=== PATIENT | female | born 1990 | race Caucasian/White ===

== ENCOUNTER → 2020-01-02 10:11 | Outpatient (CLI) | payer MEDICAID ==
[2013-12-27 07:31] VITALS: BMI 28.0
[~2020-01-02 10:11] MED LIST: CELEXA10 MG PO; CYCLOBENZAPRINE10 MG PO; FISH OIL 1,2001 CA1 PO; HYDROCODONE-APA1 TAB PO; KLONOPIN0.5 MG PO; LYRICA50 MG PO; ULTRAM50 MG PO
== END | disposition home or self-care (01) ==
LOC: D.MRI 12-31 13:30
PROVIDERS: ATTEND Orthopaedic Surgery
DX: M25.511 Pain in right shoulder (principal)

== ENCOUNTER 2020-01-17 07:14 | Day surgery (SDC) | payer MEDICAID ==
[2020-01-15 10:37] LABS: HEMATOCRIT 43.3 % (36.0-48.0); HEMOGLOBIN 14.5 g/dL (12-16); MCHC 33.5 g/dL (31.0-37.0); MCV 86.6 fL (80.0-100.0); MEAN PLATELET VOLUME 9.4 fL (7.4-10.4); RDW 12.4 % (11.5-14.5); WBC 6.3 10x3/uL (4.8-10.8)
[~2020-01-17] VITALS: Ht 160 cm; Wt 90.7 kg
[~2020-01-17 07:14] MED LIST changes: +ADDERALL 30 MG30 MG PO
[2020-01-17 08:44] VITALS: BP 128/83; Ht 160 cm; Wt 90.7 kg
[2020-01-17 09:30] LABS: HCG URINE NEGATIVE (NEGATIVE)
[2020-01-17] MEDS ORDERED: DILAUDID2 MG PO (10:12)
--- NOTE | 2020-01-17 11:19 | OP ---
PATIENT NAME: RAVEN ROSS MEDICAL RECORD: [id number] :88 LOCATION:D.OPS ADMISSION DATE: SURGEON: KINDRA MON MD DATE OF OPERATION: 01/17/2020 PREOPERATIVE DIAGNOSES: 1. Superior labrum anterior and posterior lesion of the right shoulder. 2. Impingement syndrome of the right shoulder. POSTOPERATIVE DIAGNOSES: 1. Superior labrum anterior and posterior lesion of the right shoulder. 2. Impingement syndrome of the right shoulder. PROCEDURES: 1. Arthroscopic SLAP repair. 2. Arthroscopic distal clavicle excision done through separate incision. 3. Arthroscopic subacromial decompression with acromioplasty and bursectomy. SURGEON: Kindra Mon MD FIELD IDENTIFICATION SPECIALIST: PAMELA Gooden INTRAOPERATIVE COMPLICATIONS: None. INTRAOPERATIVE SUMMARY IN DETAIL: After obtaining the appropriate preoperative orthopedic surgery consent as well as anesthetic consultation, evaluation and clearance, the patient was brought to the operating room and placed on the operating table in supine position. After adequate general laryngeal mask airway was administered, the patient was placed in a left lateral decubitus position. All pressure points were well padded to include down leg peroneal pad as well as axillary roll. The patient was held firmly to the operating table using the vacuum pack suction system. Right upper extremity and shoulder were then prepped and draped in routine sterile fashion. The arm was held in the [employer] traction boom at 30 degrees of forward flexion, 30 degrees of abduction, 10 pounds of traction laterally. Arthroscopy was established in the glenohumeral joint from posterior portal. Anterior portal was established in the anterior safe interval. Diagnostic arthroscopy did show the above findings. Secondary portal was created, the modified portal of [place]. This was then utilized for shuttle passing. The anterior aspect of the glenoid was prepared using a shaver as well as the arthroscopic rasp to ensure good reapproximation. The labral tape was passed. A single drill hole was then placed in the anterior superior aspect of the glenoid. At this point, the 2.9 PushLock from [employer] was deployed with the labral tape without too much tension, resulted in excellent reapproximation and under testing it showed good reapproximation with that, I thought no need for further fixation. Attention was then turned to the subacromial space. While on subacromial space, the [place] tissue ablation system was utilized to denude the undersurface of the acromion of all soft tissue elements and release the coracoacromial ligament. A 5-0 barrel bur was then used to perform acromioplasty. Having completed that, the distal clavicle was excised through a separate arthroscopic incision as it was found to be arthritic with inferior osteophytes. After taking out the distal clavicle, the residual of the bursa was removed, both anteriorly, laterally, posteriorly as well as superiorly. There were some attritional changes of rotator cuff, but no full thickness tearing was noted. Having completed this, arthroscopy portals were closed in routine interrupted fashion by PAMELA Gooden. Sterile OPERATIVE REPORT [id number] RAVEN ROSS dressings were applied. The patient was awakened and taken to recovery room in stable condition. All final needle and sponge counts were correct. TRANSINT:[id number] Voice Confirmation ID: [id number] DOCUMENT ID: [id number] ELIESER FONG, KINDRA RINCON at 1119 CC: [id number] DICTATION DATE: 01/17/20 1020 HOG RINGER: 01/17/20 1102 REG [facility] [address] [place] [id number]
--- NOTE | 2020-01-17 14:44 | NUR ---
1310 IV REMOVE AND PRESSURE HELD. INSTRUCTIONS GIVEN.
== END 2020-01-17 13:30 | disposition home or self-care (01) ==
LOC: D.OPS 07:14
PROVIDERS: Anesthesiology; ATTEND Orthopaedic Surgery
DX: M75.41 Impingement syndrome of right shoulder (principal); S43.431A Superior glenoid labrum lesion of right shoulder, initial encounter; X58.XXXA Exposure to other specified factors, initial encounter; M25.511 Pain in right shoulder

== ENCOUNTER 2020-10-10 06:00 | Emergency (ER) | payer BC ==
[~2020-10-10] VITALS: Ht 160 cm; Wt 89.5 kg
[~2020-10-10 06:00] MED LIST changes: +DILAUDID2 MG PO
[2020-10-10 06:04] VITALS: BP 142/113; Ht 160 cm; Wt 89.5 kg
[2020-10-10] MEDS ORDERED: SEROQUEL100 MG PO (06:07)
[2020-10-10 06:53] LABS: BASOPHILS 0.4 % (0-2); EOSINOPHILS 1.3 % (0-7); HEMOGLOBIN 15.3 g/dL (12-16); LYMPHOCYTES 21.3 % (15-50); MCH 28.9 pg (26.0-34.0); MCHC 34.8 g/dL (31.0-37.0); MCV 83.2 fL (80.0-100.0); MEAN PLATELET VOLUME 8.3 fL (7.4-10.4); MONOCYTES 6.4 % (2-11); NEUTROPHILS 70.6 % (40-80); RBC 5.29 10x6/uL (4.00-5.40); RDW 12.7 % (11.5-14.5); WBC 12.2 10x3/uL (4.8-10.8)
[2020-10-10 06:56] LABS: PLATELET COUNT 449 10x3/uL (130-400)
[2020-10-10 07:11] LABS: CALC OSMOLALITY 274 mosm/kg (275-300); CALCIUM 9.4 mg/dL (8.5-10.1); CARBON DIOXIDE 20.4 mmol/L (21.0-32.0); CHLORIDE - SERUM 102 mmol/L (98-107); CREATININE - SERUM 0.7 mg/dL (0.6-1.3); GLUCOSE 130 mg/dL (74-106); POTASSIUM - SERUM 3.4 mmol/L (3.5-5.1); SODIUM 136 mmol/L (136-145); UREA NITROGEN 14 mg/dL (7-18); eGFR NON AFRICAN AMERICAN > 90 mL/min (90-120)
[2020-10-10 07:32] LABS: BILIRUBIN NEGATIVE (NEGATIVE); KETONE LARGE mg/dL (NEGATIVE); NITRITE NEGATIVE (NEGATIVE); UROBILINOGEN NORMAL mg/dL (< 2); WHITE CELLS - URINE 0-5 HPF (0-4)
[2020-10-10 07:33] LABS: BACTERIA FEW HPF (NONE SEEN); SQUAMOUS EPITHELIAL 2 HPF (0-4)
[2020-10-10 07:35] LABS: ALBUMIN 4.8 g/dL (3.4-5.0); ALKALINE PHOSPHATASE 108 U/L (30-120); ALT (SGPT) 18 U/L (10-68); BILIRUBIN - TOTAL 0.67 mg/dL (0.2-1.3); HCG - QUANTITATIVE (MATERNAL) 35689 mIU/mL; LIPASE 67 U/L (73-393); MAGNESIUM - SERUM 2.3 mg/dL (1.8-2.4); PROTEIN - SERUM 8.6 g/dL (6.4-8.2)
[2020-10-10] MEDS ORDERED: IMODIUM2 MG PO (08:25)
[2020-10-10] MEDS ORDERED: REGLAN10 MG PO (08:25)
== END 2020-10-10 09:45 | disposition home or self-care (01) ==
LOC: D.ER 06:00
PROVIDERS: Family Medicine
DX: O26.891 Other specified pregnancy related conditions, first trimester (principal); R11.2 Nausea with vomiting, unspecified; R19.7 Diarrhea, unspecified; Z3A.00 Weeks of gestation of pregnancy not specified